=== PATIENT | female | born 1945 | race Two or more races ===

== ENCOUNTER 2022-09-29 12:45 | Emergency (ER) | payer OTHER, MEDICAID ==
[~2022-09-29] VITALS: Ht 172.7 cm; Wt 82.0 kg
[2022-09-29 13:22] VITALS: BP 127/63
[2022-09-29] MEDS ORDERED: IBUPROFEN 600 MG TAB PO ONE (14:00)
[2022-09-29] MEDS ORDERED: IBUP-1454 PO (15:08)
[2022-09-29] MEDS ORDERED: HYDR-4902 PO (15:08)
== END 2022-09-29 15:10 | disposition home or self-care (01) ==
LOC: ER 12:45
DX: M47.816 Spondylosis without myelopathy or radiculopathy, lumbar region (principal); M54.16 Radiculopathy, lumbar region; M54.40 Lumbago with sciatica, unspecified side; Z88.0 Allergy status to penicillin
CPT/HCPCS: 72100; 93971; 99284; J7030

== ENCOUNTER 2024-02-29 20:09 | Inpatient (IN) | payer OTHER, MEDICAID ==
[~2024-02-29] VITALS: Ht 157.5 cm; Wt 88.8 kg
[~2024-02-29 20:09] MED LIST: HYDR-4902 PO; IBUP-1454 PO
--- NOTE | 2024-02-29 20:36 | ED.PDOC ---
History of Present Illness HPI Comments 78 y/o F, with a Hx of HTN, nephrolithiasis, sciatica (right-side), obesity, cholecystectomy, 2xC-sections, and hysterectomy, presents with c/o non- radiating, right-flank pain and nausea, today. Patient endorses on sudden onset of symptoms at around 1730, this evening, after returning from a trip and having to bend-over and lift luggage, while unpacking. Patient comments on pain being a 10/10, non-radiating, and feeling similar to when she had kidney stones in the past. Patient endorses no prior injuries. Denies having any vomiting, diarrhea, urinary symptoms, fever, chills, or other associated symptoms or modifiers at this time. Chief Complaint: Abdominal Pain Time Seen by MD: 20:25 Primary Care Provider: [facility] Notes: Nurses Notes, Medications, Allergies Allergies: Coded Allergies: Penicillins (Verified Allergy, Unknown, 09/29/22) Home Meds Active Scripts Hydrocodone-Acetaminophen (Hydrocodone Bitartrate/AC 5-325 mg) 1 Tab Tab, 1 TAB PO Q8HP PRN, #20 TAB Prov:CSOTT FRITZ PAC 09/29/22 Ibuprofen (Ibuprofen) 600 Mg Tab, 1 TAB PO TID, #30 TAB Prov:SCOTT FRITZ PAC 09/29/22 Information Source: Patient Mode of Arrival: Ambulatory Severity: Moderate Timing: Hours Duration: Since onset Prehospital treatment: None Past Medical History PAST MEDICAL HISTORY: HTN, Kidney Stones, Denies Past Medical History (Other): sciatica (right-side), obestiy Surgical History: Cholecystectomy, (2x), Hysterectomy [employer] History: No Pertinent [employer] History Family History Family History: Reviewed,noncontributory to illness, No family hx of Cancer, No family hx of Heart tyler, No family hx of HTN, No family hx ofKidney tyler, No family hx of Liver tyler, No family hx of Lung tyler, No family hx of Stroke, Family hx of DM Social History Smoker: Non-Smoker Alcohol: Denies ETOH Use Drugs: Denies Drug Use Lives In: Home Constitutional: denies: chills, diaphoresis, fatigue, fever, malaise, sweats, weakness, others EENTM: denies: blurred vision, double vision, ear bleeding, ear discharge, ear drainage, ear pain, ear ringing, eye pain, eye redness, hearing loss, mouth pain, mouth swelling, nasal discharge, nose bleeding, nose congestion, nose pain, photophobia, tearing, throat pain, throat swelling, voice changes, others Respiratory: denies: cough, hemoptysis, orthopnea, SOB at rest, shortness of breath, SOB with excertion, stridor, wheezing, others Cardiovascular: denies: chest pain, dizzy spells, diaphoresis, Dyspnea on exertion, edema, irregular heart beat, left arm pain, lightheadedness, palpitations, PND, syncope, others Gastrointestinal: reports: nausea; denies: abdomen distended, abdominal pain, blood streaked bowels, constipated, diarrhea, dysphagia, difficulty swallowing, hematemesis, melena, poor appetite, poor fluid intake, rectal bleeding, rectal pain, vomiting, others Genitourinary: reports: flank pain; denies: abnormal vagina bleeding, burning, dyspareunia, dysuria, frequency, hematuria, incontinence, pain, , vagina discharge, urgency, others Neurological: denies: dizziness, fainting, headache, left sided numbness, left sided weakness, numbness, paresthesia, pre-existing deficit, right sided numbness, right sided weakness, seizure, speech problems, tingling, tremors, weakness, others Musculoskeletal: denies: back pain, gout, joint pain, joint swelling, muscle pain, muscle stiffness, neck pain, others Integumetry: denies: bruises, change in color, change in hair/nails, dryness, laceration, lesions, lumps, rash, wounds, others Allergic/Immunocompromised: denies: Difficulty Healing, Frequent Infections, Hives, Itching, others Hematologic/Lymphatic: denies: anemia, blood clots, easy bleeding, easy bruising, swollen glands, others Endocrine: denies: excessive hunger, excessive sweating, excessive thirst, excessive urination, flushing, intolerance to cold, intolerance to heat, unexplained weight gain, unexplained weight loss, others Psychiatric: denies: anxiety, bipolar disorder, depression, hopeless, panic disorder, schizophrenia, sleepless, suicidal, others All Other Systems: Reviewed and Negative Physical Exam General Appearance: Moderate Distress, Obese HEENT: Normal ENT Inspection, Pharynx Normal, TMs Normal Neck: Full Range of Motion, Non-Tender, Normal, Normal Inspection Respiratory: Chest Non-Tender, Lungs Clear, No Accessory Muscle Use, No Respiratory Distress, Normal Breath Sounds Cardiovascular: No Edema, No JVD, No Murmur, No Gallop, Normal Peripheral Pulses, Regular Rate/Rhythm Breast Exam: Deferred Gastrointestinal: No Organomegaly, Non Tender, No Pulsatile Mass, Normal Bowel Sounds, Soft Genitalia: Deferred Pelvic: Deferred Rectal: Deferred Extremities: No calf tenderness, Normal capillary refill, Normal inspection, Normal range of motion, Non-tender, No pedal edema Musculoskeletal : Apperance: Normal Neurologic: Alert, clinical laboratory manager II-XII nml as Tested, No Motor Deficits, Normal Affect, Normal Mood, No Sensory Deficits Cerebellar Function: Normal Reflexes: Normal Skin: Dry, Normal Color, Warm Lymphatic: No Adenopathy Was a procedure done? Was a procedure done?: No Differential Dx Considerations may include: nephrolithiasis, ovarian cysts, ovarian torsion, appendicitis, musculoskeletal pain, UTI X-Ray, Labs, Meds, VS Vital Signs Date Time Temp Pulse Resp B/P (MAP) Pulse Ox O2 Delivery O2 Flow Rate FiO2 02/29/24 20:16 97.6 69 16 173/47 (89) 99 Lab Test 02/29/24 20:53 02/29/24 20:39 Range/Units Urine Color Yellow Yellow Urine Clarity Turbid H Clear Urine pH 5.5 5.0-9.0 Urine Specific [place] 1.033 1.001-1.035 Urine Protein Trace H Negative Urine Ketones Negative Negative Urine Blood 2+ H Negative /uL Urine Nitrite Negative Negative Urine Bilirubin Negative Negative Urine Urobilinogen Normal Negative mg/dL Urine Leukocyte Esterase 2+ Negative /uL Urine RBC 28 0 - 4 /hpf Urine WBC 8 0 - 5 /hpf Urine Squamous Epithelial Cells Few <5 /hpf Urine Calcium Oxalate Crystals Mod None Seen Urine Bacteria None seen None Seen /hpf Urine Mucus Few None Seen Urine Glucose Normal Normal mg/dL White Blood Count 6.8 4.4-10.8 10^3/uL Red Blood Count 4.21 4.0-5.20 10^6/uL Hemoglobin 13.5 12.2-16.2 g/dL Hematocrit 40.1 36.0-46.0 % Mean Corpuscular Volume 95.2 80.0-100.0 fL Mean Corpuscular Hemoglobin 32.1 H 28.0-32.0 pg Mean Corpuscular Hemoglobin Concent 33.7 32.0-36.0 g/dL Red Cell Distribution Width 13.9 11.8-14.3 % Platelet Count 224 140-450 10^3/uL Mean Platelet Volume 7.7 6.9-10.8 fL Neutrophils (%) (Auto) 60.3 37.0-80.0 % Lymphocytes (%) (Auto) 26.8 10.0-50.0 % Monocytes (%) (Auto) 8.7 0.0-12.0 % Eosinophils (%) (Auto) 3.5 0.0-7.0 % Basophils (%) (Auto) 0.7 0.0-2.0 % Neutrophils # (Auto) 4.1 1.6-8.6 10 ^3/uL Lymphocytes # (Auto) 1.8 0.4-5.4 10 ^3/uL Monocytes # (Auto) 0.6 0-1.3 10 ^3/uL Eosinophils # (Auto) 0.2 0-0.8 10 ^3/uL Basophils # (Auto) 0 0-0.2 10 ^3/uL Nucleated Red Blood Cells 0.1 % Sodium Level 141 136-145 mmol/L Potassium Level 4.2 3.5-5.1 mmol/L Chloride Level 109 H 98-107 mmol/L Carbon Dioxide Level 23 20-31 mmol/L Anion Gap 9 5-15 Blood Urea Nitrogen 14 9-23 mg/dL Creatinine 0.96 0.550-1.02 mg/dL Glomerular Filtration Rate Calc 61 >90 mL/min BUN/Creatinine Ratio 14.6 10.0-20.0 Serum Glucose 121 H 74-106 mg/dL Calcium Level 9.9 8.7-10.4 mg/dL Current Medications Medications (Trade) Dose Ordered Sig/Pedro Route Start Time Stop Time Status Last Admin Acetaminophen/ Hydrocodone Bitart ([place] 5/325MG Tab) 1 tab ONCE ONCE PO 02/29/24 20:30 02/29/24 20:31 DC 02/29/24 20:[address] [address] Ph: [phone] DIAGNOSTIC IMAGING Diagnostic Imaging Report : [id number] Signed PATIENT: DIA RODRÍGUEZ ACCT: [id number] UNIT: [id number] : 1945 LOC: ER ROOM / BED: / AGE / SEX: 78 / F ADM STATUS: REG ER SERVICE 26 ORDERING PHYSICIAN: CECILY BRANDON MD PROCEDURE(s): ABPL - CT AB PEL WO CON-NO ORAL OR IV REASON: pain ORDER NUMBER(s): [id number], ACCESSION NUMBER(s): [id number] Exam: CT CT AB PEL WO CON-NO ORAL OR IV History: pain Comparison Study: None available at time of dictation. Technique: Multidetector CT of the abdomen and pelvis. Axial, coronal and sagittal multiplanar reformats were performed by the technologist on a separate workstation. Radiation Dose Information: CT Dose: CTDI volume is 20.04 mGy. Dose-length product is 993.91 mGy*cm Findings: Lung bases are clear. Partially visualized heart is unremarkable. Liver, spleen, gallbladder, pancreas and adrenal glands are unremarkable. Mild right hydroureteronephrosis with no obstructing calculus noted. Otherwise, kidneys, ureters and urinary bladder are unremarkable. Tiny hiatal hernia. Gastric wall thickening. Small bowel loops unremarkable. Appendix is unremarkable. Descending colon and sigmoid diverticulosis without diverticulitis. Mild rectal wall thickening which may be due to inadequate distention. No evidence of intraperitoneal free air or free fluid. Mild mid abdominal mesenteric fat stranding. No significant lymphadenopathy. The soft tissues are unremarkable. No destructive osseous lesions noted. Old fracture deformity of right-sided ribs. IMPRESSION: Mild right hydroureteronephrosis with no obstructing calculus noted. Mild gastric wall thickening. Correlate for gastritis. Colonic diverticulosis without diverticulitis. ATED BY: ANALY ABDI DO DICTATED DATE/TIME: 02/29/242120 SIGNED BY: ANALY ABDI DO SIGNED DATE/TIME: 02/29/242120 CC: IV Hep-Lock was established The patient was given normal saline at a 500 cc bolus. The patient does have the hydroureteronephrosis secondary to the kidney stone The patient was being admitted to the hospitalist The patient was given [place] for the pain The patient also has a UTI and is being given Levaquin 500 mg IV piggyback The patient was being admitted at this time. Images Reviewed?: Images reviewed and evaluated by me Time of 1ST Reevaluation: 20:55 Reevaluation 1ST: Unchanged Patient Education/Counseling: Diagnosis, Treatment, Prognosis Family Education/Counseling: No Family Present Departure 1 Departure Time of Disposition: 21:45 Impression: Primary Impression: Right flank pain Additional Impressions: UTI (urinary tract infection) Qualified Codes: N30.01 - Acute cystitis with hematuria Generalized weakness Disposition: ADMITTED INPATIENT Admit to: Med Surg Condition: Fair Critical Care Note Critical Care Time?: No Stability Stability form required: No Heart Score Heart Score: Heart Score Response (Comments) Value History N/A 0 EKG N/A 0 Age N/A 0 Risk Factors N/A 0 Troponin N/A 0 Total 0 I personally scribed for CECILY BRANDON MD ([email or web address]) on 02/29/24 at 20:36. Electronically submitted by Ricco Tanner ([email or web address]). I personally scribed for CECILY BRANDON MD ([email or web address]) on 02/29/24 at 21:32. Electronically submitted by Ricco Tanner ([email or web address]). CECILY BRANDON MD Feb 29, 2024 20:36
[2024-02-29] MEDS: HYDROcodone-ACET 5/325MG TAB PO ONE (20:46)
[2024-02-29 20:54] LABS: Urine Bacteria None Seen /hpf (None Seen)
[2024-02-29 20:58] LABS: Basophils # (auto) 0 10 ^3/uL (0-0.2); Basophils % (auto) 0.7 % (0.0-2.0); Eosinophils # (auto) 0.2 10 ^3/uL (0-0.8); Eosinophils % (auto) 3.5 % (0.0-7.0); Hematocrit 40.1 % (36.0-46.0); Hemoglobin 13.5 g/dL (12.2-16.2); Lymphocytes # (auto) 1.8 10 ^3/uL (0.4-5.4); Lymphocytes % (auto) 26.8 % (10.0-50.0); Mean Corpuscular Hemoglobin 32.1 pg (28.0-32.0); Mean Corpuscular Hgb Conc. 33.7 g/dL (32.0-36.0); Mean Corpuscular Volume 95.2 fL (80.0-100.0); Monocytes # (auto) 0.6 10 ^3/uL (0-1.3); Monocytes % (auto) 8.7 % (0.0-12.0); Neutrophils # (auto) 4.1 10 ^3/uL (1.6-8.6); Neutrophils % (auto) 60.3 % (37.0-80.0); Nucleated Red Blood Cells % 0.1 %; Platelet Count (auto) 224 10^3/uL (140-450); Red Blood Cells 4.21 10^6/uL (4.0-5.20); Red Cell Distribution Width 13.9 % (11.8-14.3); White Blood Cell 6.8 10^3/uL (4.4-10.8)
[2024-02-29 21:10] LABS: Chloride 109 mmol/L (98-107); Potassium 4.2 mmol/L (3.5-5.1); Sodium 141 mmol/L (136-145)
[2024-02-29 21:11] LABS: Anion Gap 9 (5-15); Calcium 9.9 mg/dL (8.7-10.4); Carbon Dioxide 23 mmol/L (20-31)
[2024-02-29 21:16] LABS: BUN/Creatinine Ratio 14.6 (10.0-20.0); Blood Urea Nitrogen 14 mg/dL (9-23); Glucose 121 mg/dL (74-106)
[2024-02-29 21:24] LABS: Urine Blood 2+ /uL (Negative); Urine Clarity Turbid (Clear); Urine Color Yellow (Yellow); Urine Mucus FEW (None Seen); Urine Protein, UAD TRACE (Negative); Urine Specific Gravity 1.033 (1.001-1.035); Urine Urobilinogen Normal (Negative); Urine WBC 8 /hpf (0 - 5); Urine pH 5.5 (5.0-9.0)
--- NOTE | 2024-02-29 21:24 | DVH ---
Exam: CT CT AB PEL WO CON-NO ORAL OR IV History: pain Comparison Study: None available at time of dictation. Technique: Multidetector CT of the abdomen and pelvis. Axial, coronal and sagittal multiplanar reform ats were performed by the technologist on a separate workstation. Radiation Dose Information: CT Dose: CTDI volume is 20.04 mGy. Dose-length product is 993.91 mGy*cm Findings: Lung bases are clear. Partially visualized heart is unremarkable. Liver, spleen, gallbladder, pancreas and adrenal glands are unremarkable. Mild right hydroureteronephrosis with no obstructing calculus noted. Otherwise, kidneys, ureters and urinary bladder are unremarkable. Tiny hiatal hernia. Gastric wall thickening. Small bowel loops unremarkable. Appendix is unremarkable . Descending colon and sigmoid diverticulosis without diverticulitis. Mild rectal wall thickening whi ch may be due to inadequate distention. No evidence of intraperitoneal free air or free fluid. Mild mid abdominal mesenteric fat stranding. No significant lymphadenopathy. The soft tissues are unremarkable. No destructive osseous lesions noted. Old fracture deformity of ri ght-sided ribs. IMPRESSION: Mild right hydroureteronephrosis with no obstructing calculus noted. Mild gastric wall thickening. Correlate for gastritis. Colonic diverticulosis without diverticulitis.
[2024-02-29] MEDS: levoFLOXacin 500MG 100 ML IV ONE (21:45)
[2024-02-29] MEDS ORDERED: MORPHINE SULFATE INJ 2 MG/ml SYRG IV PRN ×2 (23:30)
[2024-02-29] MEDS ORDERED: ONDANSETRON HCL 4 MG/2 ML VIAL IV PRN (23:30)
[2024-02-29] MEDS ORDERED: NITROGLYCERIN 0.4 MG SL TAB SL PRN (23:30)
[2024-02-29] MEDS ORDERED: SODIUM CHLORIDE 0.9% 1,000 ML IV SCH (23:30)
--- NOTE | 2024-03-01 00:09 | DVH ---
INDICATION: right flank pain TECHNIQUE: Multiple real-time sonographic images of the kidneys and bladder were obtained. COMPARISON: None FINDINGS: RIGHT kidney measures 10.8 cm in length. No hydronephrosis. LEFT kidney measures 8.9 cm in length. No hydronephrosis. Bladder is collapsed around a Franco catheter. IMPRESSION: 1. Unremarkable examination.
--- NOTE | 2024-03-01 01:31 | DVHHPRES ---
History of Present Illness Resident Creating Document: EULA HIDALGO RESIDENT Reason for Visit: right flank pain History of Present Illness The patient is a 78-year-old Moldovan-speaking female with a history of hypertension, nephrolithiasis, sciatica, thyroid disorder, obesity, cholecystectomy, two prior C-sections, and hysterectomy, presenting with acute right flank pain and nausea.The pain started suddenly at 5:30 p.m., following lifting and bending over to pack luggage after a trip. It was initially 10/10 in intensity, described as severe and non-radiating, similar to her prior kidney stone pain in 2019. After receiving Keshena, the pain improved to <3/10. The patient denies recent trauma or injuries.She reports burning pain with urination. She denies fever, chills, hematuria, or changes in urinary frequency but reports nausea without vomiting. The patient admits to non-adherence to antihypertensive medication (Losartan), attributing her elevated blood pressure to emotional stress following her husbands passing two years ago. Recent CT scan of the abdomen showed mild right hydroureteronephrosis with no obstructing tightness noted and mild gastric wall thickening correlate for gastritis and colonic diverticulosis without diverticulitis. Recent ultrasound was unremarkable. Blood pressure us 173/47. Past Medical History Nephrolithiasis Hypertension Sciatica Degenerative lumbar disc type 2 obesity Past Surgical History cholecystectomy two C sections hysterectomy Family History: None Smoke: No ALCOHOL: none Lives: Other Review of Systems Review of Systems Constitutional: No: Fever, Chills, Sweats, Weakness, Malaise, Other Eyes: No: Pain, Vision change, Conjunctivae inflammation, Eyelid inflammation, Other, Redness ENT: No: Ear pain, Ear discharge, Nose pain, Nose discharge, Nose congestion, Mouth pain, Mouth swelling, Throat pain, Throat swelling, Other Respiratory: No Wheezing, Hemoptysis, Pleuritic Pain, Sputum, Wheezing, Other Cardiovascular: No: Chest Pain, Palpitations, Orthopnea, Paroxysmal Noc. Dyspn ea, Edema, Lt Headedness, Other Genitourinary: Burning with the urination, denies gross hematuria Gastrointestinal: Nausea but no vomiting, diarrhea or constipation Musculoskeletal: Right flank pain, denies trauma or injury Neurological:; No: Weakness, Numbness, Incoordination, Change in speech, Confusion, Seizures Allergies: Coded Allergies: Penicillins (Verified Allergy, Unknown, 09/29/22) Medications Current Medications Medications Dose Ordered Sig/Pedro Route Start Time Stop Time Status Last Admin Dose Admin Sodium Chloride 1,000 ml @ 60 mls/hr [id number] IV 02/29/24 23:30 Ondansetron HCl 4 mg Q4HP PRN IV 02/29/24 23:30 Acetaminophen 650 mg Q6HP PRN PO 02/29/24 23:30 Morphine Sulfate 2 mg Q4HPRN PRN IV 02/29/24 23:30 Enoxaparin Sodium 40 mg HS SC 02/29/24 23:30 Nitroglycerin 0.4 mg Q5MINP PRN SL 02/29/24 23:30 Morphine Sulfate 2 mg Q30M PRN IV 02/29/24 23:30 Exam Vital Signs Vital Signs Date Time Temp Pulse Resp B/P (MAP) Pulse Ox O2 Delivery O2 Flow Rate FiO2 02/29/24 20:16 97.6 69 16 173/47 (89) 99 Exam Examination General Appearance: Alert, Oriented X3, Cooperative, mild distress Vital signs: BP: 173/47 Heart rate normal Respiratory normal Temperature: Afebrile Respiratory: Clear to auscultation, Normal air movement Cardiovascular: Regular rate, Normal S1, Normal S2 Abdominal: Positive tenderness in the right flank, no guarding no rebound or palpable masses. Extremities: No cyanosis, No edema, Normal pulses, No tenderness/swelling Skin: No rashes, No breakdown Neuro: Normal gait, Normal speech, Strength at 5/5 X4 ext, Normal tone, Sensation intact, Cranial nerves 3-12 NL, Reflexes 2+ Psych/Mental Status: Mental status NL, Mood NL Labs/Xrays Labs Test 02/29/24 20:53 02/29/24 20:39 Range/Units Urine Color Yellow Yellow Urine Clarity Turbid H Clear Urine pH 5.5 5.0-9.0 Urine Specific [place] 1.033 1.001-1.035 Urine Protein Trace H Negative Urine Ketones Negative Negative Urine Blood 2+ H Negative /uL Urine Nitrite Negative Negative Urine Bilirubin Negative Negative Urine Urobilinogen Normal Negative mg/dL Urine Leukocyte Esterase 2+ Negative /uL Urine RBC 28 0 - 4 /hpf Urine WBC 8 0 - 5 /hpf Urine Squamous Epithelial Cells Few <5 /hpf Urine Calcium Oxalate Crystals Mod None Seen Urine Bacteria None seen None Seen /hpf Urine Mucus Few None Seen Urine Glucose Normal Normal mg/dL White Blood Count 6.8 4.4-10.8 10^3/uL Red Blood Count 4.21 4.0-5.20 10^6/uL Hemoglobin 13.5 12.2-16.2 g/dL Hematocrit 40.1 36.0-46.0 % Mean Corpuscular Volume 95.2 80.0-100.0 fL Mean Corpuscular Hemoglobin 32.1 H 28.0-32.0 pg Mean Corpuscular Hemoglobin Concent 33.7 32.0-36.0 g/dL Red Cell Distribution Width 13.9 11.8-14.3 % Platelet Count 224 140-450 10^3/uL Mean Platelet Volume 7.7 6.9-10.8 fL Neutrophils (%) (Auto) 60.3 37.0-80.0 % Lymphocytes (%) (Auto) 26.8 10.0-50.0 % Monocytes (%) (Auto) 8.7 0.0-12.0 % Eosinophils (%) (Auto) 3.5 0.0-7.0 % Basophils (%) (Auto) 0.7 0.0-2.0 % Neutrophils # (Auto) 4.1 1.6-8.6 10 ^3/uL Lymphocytes # (Auto) 1.8 0.4-5.4 10 ^3/uL Monocytes # (Auto) 0.6 0-1.3 10 ^3/uL Eosinophils # (Auto) 0.2 0-0.8 10 ^3/uL Basophils # (Auto) 0 0-0.2 10 ^3/uL Nucleated Red Blood Cells 0.1 % Sodium Level 141 136-145 mmol/L Potassium Level 4.2 3.5-5.1 mmol/L Chloride Level 109 H 98-107 mmol/L Carbon Dioxide Level 23 20-31 mmol/L Anion Gap 9 5-15 Blood Urea Nitrogen 14 9-23 mg/dL Creatinine 0.96 0.550-1.02 mg/dL Glomerular Filtration Rate Calc 61 >90 mL/min BUN/Creatinine Ratio 14.6 10.0-20.0 Serum Glucose 121 H 74-106 mg/dL Calcium Level 9.9 8.7-10.4 mg/dL Assessment/Plan Assessment/Plan #Right flank pain with a hydronephrosis likely secondary to nonobstructing nephrolithiasis -continue Keshena as needed for severe pain -Transition to acetaminophen -scheduled urology follow-up #Urinary tract infection - start levofloxacin IV daily - Encourage hydration to help her clear infection and reduced stone formation risk #Essential Hypertension , uncontrolled - Losartan 50 mg daily #Gastric wall thickening likely due to gastritis - Pantoprazole 40 mg daily to address potential gastritis - Avoid NSAIDs if gastritis confirmed #Medication noncompliance - discharge planning and education regarding medication adherence, hydration and recognizing symptoms of worsening kidney or urinary issues. - follow-up with Urology and primary care provider # Type 2 obesity -Lifestyle modification counseling, encouraged improving dietary habits and physical activity Case discussed with Dr. Diop Discharge planning discussed with the patient and caregiver for 45 minutes. Code status: Full code Plan discussed with: Patient My Orders Orders - EULA HIDALGO RESIDENT Procedure Category Date Status Time Admit ADMIT 02/29/24 Transmitted 23:18 Allergies EVELIN 02/29/24 In Process 23:18 Code Status CODE 02/29/24 Transmitted 23:18 Sodium Chloride 0.9% PHA 02/29/24 In Process 23:30 Ondansetron Hcl PHA 02/29/24 In Process (Zofran) 23:30 Complete Blood Count LAB 03/01/24 Logged 04:00 Comprehensive LAB 03/01/24 Logged Metabolic Panel 04:00 Npo (Nothing By DIET 03/01/24 Transmitted Mouth) Diet Breakfast Acetaminophen Tablet PHA 02/29/24 In Process (Tylenol Tablet) 23:30 Morphine Sulfate PHA 02/29/24 In Process Injection 23:30 Enoxaparin Sodium PHA 02/29/24 In Process (Lovenox) 23:30 Nitroglycerin PHA 02/29/24 In Process Sublingual (Ntrostat 23:30 Morphine Sulfate PHA 02/29/24 In Process Injection 23:30 Oxygen By Nasal RT 02/29/24 Transmitted Cannula 23:18 Stat Ekg For Chest [facility] 02/29/24 In Process Pain 23:18 Notify Of Changes [facility] 02/29/24 In Process From Base 23:18 Final Assembler For [facility] 02/29/24 In Process 24 Hours 23:18 Emergency Dysrhythmia [facility] 02/29/24 In Process Protocol 23:18 Rhythm Strips Once [facility] 02/29/24 In Process Every Shift 23:18 Kidney US 02/29/24 Resulted 23:18 Date of Service: Feb 29, 2024 Billing Provider: SYLVIA DIOP MD Common Visit Codes: 78468-[id number] INP/OBS CARE (HIGH) Secondary Visit Codes: [id number] CARE PLAN 30 MINUTES EULA HIDALGO RESIDENT Mar 01, 2024 01:31 SYLVIA DIOP MD Mar 01, 2024 09:11
[2024-03-01] MEDS: levoFLOXacin 500MG 100 ML IV ONE (02:46)
[2024-03-01] MEDS: SODIUM CHLORIDE 0.9% 500 ML IVB ONE (02:47)
[2024-03-01] MEDS: ACETAMINOPHEN 325 MG TAB PO PRN (02:48)
[2024-03-01] MEDS: PANTOPRAZOLE 40 MG/10 ML VIAL INJ IV ONE (03:28)
[2024-03-01] MEDS: ENOXAPARIN SOD 40 MG/0.4 ML SYRINGE SC SCH (03:28)
[2024-03-01] MEDS: LOSARTAN POTASSIUM 25 MG TAB PO ONE (03:31)
[2024-03-01] MEDS: SODIUM CHLORIDE 0.9% 1,000 ML IV SCH (03:39)
[2024-03-01 06:38] LABS: Basophils # (auto) 0 10 ^3/uL (0-0.2); Basophils % (auto) 0.7 % (0.0-2.0); Eosinophils # (auto) 0.1 10 ^3/uL (0-0.8); Eosinophils % (auto) 2.4 % (0.0-7.0); Hematocrit 38.7 % (36.0-46.0); Hemoglobin 13.1 g/dL (12.2-16.2); Lymphocytes # (auto) 1.7 10 ^3/uL (0.4-5.4); Lymphocytes % (auto) 33.1 % (10.0-50.0); Mean Corpuscular Hemoglobin 32.3 pg (28.0-32.0); Mean Corpuscular Hgb Conc. 33.8 g/dL (32.0-36.0); Mean Corpuscular Volume 95.5 fL (80.0-100.0); Monocytes # (auto) 0.5 10 ^3/uL (0-1.3); Monocytes % (auto) 9.1 % (0.0-12.0); Neutrophils # (auto) 2.9 10 ^3/uL (1.6-8.6); Neutrophils % (auto) 54.7 % (37.0-80.0); Nucleated Red Blood Cells % 0.1 %; Platelet Count (auto) 210 10^3/uL (140-450); Red Blood Cells 4.05 10^6/uL (4.0-5.20); Red Cell Distribution Width 13.6 % (11.8-14.3); White Blood Cell 5.3 10^3/uL (4.4-10.8)
[2024-03-01 06:46] LABS: Alanine Aminotransferase 14 U/L (7-40); Albumin 3.9 g/dL (3.2-4.8); Alkaline Phosphatase 104 U/L (46-116); Calcium 9.4 mg/dL (8.7-10.4); Carbon Dioxide 27 mmol/L (20-31); Chloride 107 mmol/L (98-107)
[2024-03-01 06:47] LABS: Anion Gap 7 (5-15); Aspartate Aminotransferase 19 U/L (13-40); BUN/Creatinine Ratio 15.3 (10.0-20.0); Bilirubin, Total 0.6 mg/dL (0.2-1.0); Blood Urea Nitrogen 11 mg/dL (9-23); Glucose 106 mg/dL (74-106); Potassium 4.1 mmol/L (3.5-5.1); Sodium 141 mmol/L (136-145); Total Protein 6.6 g/dL (5.7-8.2)
[2024-03-01 06:50] LABS: INR 1.04 (0.9-1.15)
[2024-03-01 06:56] LABS: Uric Acid 3.4 mg/dL (3.1-7.8)
[2024-03-01] MEDS: TAMSULOSIN HYDROCHLORIDE 0.4 MG CAP PO ONE (09:01)
[2024-03-01] MEDS ORDERED: TAMS-35 PO (09:44)
[2024-03-01] MEDS ORDERED: LOSA-534 PO (09:44)
[2024-03-01] MEDS ORDERED: ACET-1882 PO (09:44)
[2024-03-01] MEDS ORDERED: CEPH250C PO (09:44)
[2024-03-01] MEDS ORDERED: levoFLOXacin 500MG 100 ML IV SCH (10:00)
[2024-03-01] MEDS: cefTRIAXone 1GM/50ML D5W 50 ML IV SCH (12:43)
[2024-03-01 13:05] VITALS: BP 93/55; PULSE 70; RESP 12; TEMP 98.7; O2SAT 98
[2024-03-01 13:32] LABS: Amphetamine Screen, Urine Neg (NEGATIVE); Barbiturate Scree,Urine Neg (NEGATIVE); Benzodiazephine Screen, Urine Neg (NEGATIVE)
[2024-03-01 13:33] LABS: Cannabinoid Screen, Urine Neg (NEGATIVE); Cocaine Screen, Urine Neg (NEGATIVE); Opiate Scree,Urine Neg (NEGATIVE); Phencyclidine Screen, Urine Neg (NEGATIVE)
--- NOTE | 2024-03-01 15:32 | DVHDSRES ---
Discharge Summary Date of Admission Resident Creating Document: MACIEL RAE RESIDENT Feb 29, 2024 at 23:20 Date of Discharge: Mar 01, 2024 Admitting Diagnosis abdominal pain Labs/Diagnostic Data: Laboratory Results Test 03/01/24 05:51 02/29/24 20:53 White Blood Count 5.3 10^3/uL (4.4-10.8) Red Blood Count 4.05 10^6/uL (4.0-5.20) Hemoglobin 13.1 g/dL (12.2-16.2) Hematocrit 38.7 % (36.0-46.0) Mean Corpuscular Volume 95.5 fL (80.0-100.0) Mean Corpuscular Hemoglobin 32.3 pg (28.0-32.0) Mean Corpuscular Hemoglobin Concent 33.8 g/dL (32.0-36.0) Red Cell Distribution Width 13.6 % (11.8-14.3) Platelet Count 210 10^3/uL (140-450) Mean Platelet Volume 8.1 fL (6.9-10.8) Neutrophils (%) (Auto) 54.7 % (37.0-80.0) Lymphocytes (%) (Auto) 33.1 % (10.0-50.0) Monocytes (%) (Auto) 9.1 % (0.0-12.0) Eosinophils (%) (Auto) 2.4 % (0.0-7.0) Basophils (%) (Auto) 0.7 % (0.0-2.0) Neutrophils # (Auto) 2.9 10 ^3/uL (1.6-8.6) Lymphocytes # (Auto) 1.7 10 ^3/uL (0.4-5.4) Monocytes # (Auto) 0.5 10 ^3/uL (0-1.3) Eosinophils # (Auto) 0.1 10 ^3/uL (0-0.8) Basophils # (Auto) 0 10 ^3/uL (0-0.2) Nucleated Red Blood Cells 0.1 % Prothrombin Time 11.0 sec (9.3-11.8) Prothrombin Time INR 1.04 (0.9-1.15) Sodium Level 141 mmol/L (136-145) Potassium Level 4.1 mmol/L (3.5-5.1) Chloride Level 107 mmol/L (98-107) Carbon Dioxide Level 27 mmol/L (20-31) Anion Gap 7 (5-15) Blood Urea Nitrogen 11 mg/dL (9-23) Creatinine 0.72 mg/dL (0.550-1.02) Glomerular Filtration Rate Calc 86 mL/min (>90) BUN/Creatinine Ratio 15.3 (10.0-20.0) Serum Glucose 106 mg/dL (74-106) Hemoglobin A1c 5.7 % A1C (<5.7) Lactic Acid Level 1.0 mmol/L (0.4-2.0) Uric Acid 3.4 mg/dL (3.1-7.8) Calcium Level 9.4 mg/dL (8.7-10.4) Total Bilirubin 0.6 mg/dL (0.2-1.0) Aspartate Amino Transferase (AST) 19 U/L (13-40) Alanine Aminotransferase (ALT) 14 U/L (7-40) Alkaline Phosphatase 104 U/L (46-116) Total Protein 6.6 g/dL (5.7-8.2) Albumin 3.9 g/dL (3.2-4.8) Thyroid Stimulating Hormone (TSH) 2.11 uIU/mL (0.55-4.78) Urine Color Yellow (Yellow) Urine Clarity Turbid (Clear) Urine pH 5.5 (5.0-9.0) Urine Specific [place] 1.033 (1.001-1.035) Urine Protein Trace (Negative) Urine Ketones Negative (Negative) Urine Blood 2+ /uL (Negative) Urine Nitrite Negative (Negative) Urine Bilirubin Negative (Negative) Urine Urobilinogen Normal mg/dL (Negative) Urine Leukocyte Esterase 2+ /uL (Negative) Urine RBC 28 /hpf (0 - 4) Urine WBC 8 /hpf (0 - 5) Urine Squamous Epithelial Cells Few /hpf (<5) Urine Calcium Oxalate Crystals Mod (None Seen) Urine Bacteria None seen /hpf (None Seen) Urine Mucus Few (None Seen) Urine Glucose Normal mg/dL (Normal) Urine Opiates Screen Neg (NEGATIVE) Urine Fentanyl Screen Neg (NEGATIVE) Urine Barbiturates Screen Neg (NEGATIVE) Urine Phencyclidine Screen Neg (NEGATIVE) Urine Amphetamines Screen Neg (NEGATIVE) Urine Benzodiazepines Screen Neg (NEGATIVE) Urine Cocaine Screen Neg (NEGATIVE) Urine Cannabinoids Screen Neg (NEGATIVE) Other Laboratory Tests 03/01/24 05:51 Brief Hx & Hospital Course: The patient is a 78-year-old [place]-speaking female with a history of hypertension, nephrolithiasis, sciatica, thyroid disorder, obesity, cholecystectomy, two prior C-sections, and hysterectomy, presenting with acute right flank pain and nausea.The pain started yesterday, following lifting and bending over to pack luggage after a trip. It was initially 10/10 in intensity, described as severe and non-radiating, similar to her prior kidney stone pain in 2019. After receiving [place], the pain improved to <3/10. The patient denies recent trauma or injuries.She reports burning pain with urination. She denies fever, chills, hematuria, or changes in urinary frequency but reports nausea without vomiting. The patient admits to non-adherence to antihypertensive medication (Losartan), attributing her elevated blood pressure to emotional stress following her husbands passing two years ago. At admission, CT scan of the abdomen showed mild right hydroureteronephrosis with no obstructing tightness noted and mild gastric wall thickening correlate for gastritis and colonic diverticulosis without diverticulitis. Recent ultrasound was unremarkable. New renal ultrasound didnt showed hydronephrosis, UA showed UTI, abdominal pain resolved and patient stated that she wants to go home. CBC without leucocytosis, no fever no SIRS, normal CMP Pt was discharged with AB and tamsulosin, fu with pcp and urology Normal BP at discharge Respiratory: Clear to auscultation, Normal air movement Cardiovascular: Regular rate, Normal S1, Normal S2 Abdominal: Positive tenderness in the right flank, no guarding no rebound or palpable masses. Extremities: No cyanosis, No edema, Normal pulses, No tenderness/swelling Skin: No rashes, No breakdown Neuro: Normal gait, Normal speech, Strength at 5/5 X4 ext, Normal tone, Sensation intact, Cranial nerves 3-12 NL, Reflexes 2+ Psych/Mental Status: Mental status NL, Mood NL Case discussed with Dr Molina Operations or Procedures Exam: CT CT AB PEL WO CON-NO ORAL OR IV History: pain Comparison Study: None available at time of dictation. Technique: Multidetector CT of the abdomen and pelvis. Axial, coronal and sagittal multiplanar reformats were performed by the technologist on a separate workstation. Radiation Dose Information: CT Dose: CTDI volume is 20.04 mGy. Dose-length product is 993.91 mGy*cm Findings: Lung bases are clear. Partially visualized heart is unremarkable. Liver, spleen, gallbladder, pancreas and adrenal glands are unremarkable. Mild right hydroureteronephrosis with no obstructing calculus noted. Otherwise, kidneys, ureters and urinary bladder are unremarkable. Tiny hiatal hernia. Gastric wall thickening. Small bowel loops unremarkable. Appendix is unremarkable. Descending colon and sigmoid diverticulosis without diverticulitis. Mild rectal wall thickening which may be due to inadequate distention. No evidence of intraperitoneal free air or free fluid. Mild mid abdominal mesenteric fat stranding. No significant lymphadenopathy. The soft tissues are unremarkable. No destructive osseous lesions noted. Old fracture deformity of right-sided ribs. IMPRESSION: Mild right hydroureteronephrosis with no obstructing calculus noted. Mild gastric wall thickening. Correlate for gastritis. Colonic diverticulosis without diverticulitis. Condition at Discharge: Stable Final Diagnosis/Problems List Right flank pain with a hydronephrosis likely secondary to nonobstructing nephrolithiasis and UTI improved Essential Hypertension, uncontrolled gastritis Type 2 obesity Discharge Disposition: Home Discharge Instruct/Medications Diet: Consistent carbohydrate, Cardiac 2g Na,low cholest Activity: No Restrictions, As Tolerated Follow Up/Referral: f/u with pcp and urology Medications: resume home meds+ see prescription Discharge Statement: "Patient was advised to return to the ER or call 911 if any headaches, dizziness, shortness of breath, chest pain, abdominal pain, bleeding, fevers, or worsening of medical condition. Patient was counseled about treatment plan, medications, possible side effects, patientverbalized understanding. All questions were answered to the best of my ability. This discharge took greater then 30 minutes in planning, reviewing documentation, counseling the patient, and discussing with other team members." ASSESSMENT ASSESSMENT Assessment mild hydronephrosis kidney stone Date of Service: Mar 01, 2024 Billing Provider: HELLEN MOLINA MD Common Visit Codes: 29321-HYA/OBS DISCH DAY >30min Coding Comment Comment Attending Attestation I saw and evaluated the patient. I reviewed the residents note and agree with findings and plan as documented in the residents note except as documented below. MACIEL RAE RESIDENT Mar 01, 2024 15:32 HELLEN MOLINA MD Mar 02, 2024 21:44
[2024-03-01] MEDS ORDERED: TAMSULOSIN HYDROCHLORIDE 0.4 MG CAP PO SCH (18:00)
[2024-03-02] MEDS ORDERED: PANTOPRAZOLE 40 MG/10 ML VIAL INJ IV SCH (10:00)
[2024-03-02] MEDS ORDERED: LOSARTAN POTASSIUM 50 MG TAB PO SCH (10:00)
== END 2024-03-01 13:15 | disposition home or self-care (01) | DRG 690 ==
LOC: ER 20:09 → OVERFLOW 23:20
PROVIDERS: ADMIT Student in an Organized Health Care Education/Training Program; ATTEND Student in an Organized Health Care Education/Training Program
DX: N13.6 Pyonephrosis (principal); K29.70 Gastritis, unspecified, without bleeding; I10 Essential (primary) hypertension; E66.9 Obesity, unspecified; K57.30 Diverticulosis of large intestine without perforation or abscess without bleeding; Z90.49 Acquired absence of other specified parts of digestive tract; Z87.442 Personal history of urinary calculi; Z90.710 Acquired absence of both cervix and uterus; Z91.199 Patient's noncompliance with other medical treatment and regimen due to unspecified reason; Z68.35 Body mass index [BMI] 35.0-35.9, adult; Z79.899 Other long term (current) drug therapy
CPT/HCPCS: 36415; 74176; 76775; 80048; 80053; 80307; 81001; 83036; 83605; 84443; 84550; 85025; 85610; 87086; G0378; J1956; J2470